=== PATIENT | female | born 1935 | race Caucasian/White ===

== ENCOUNTER 2021-10-27 12:13 | Inpatient (IN) ==
[2021-10-27] MEDS ORDERED: Naloxone 0.4 MG/ML INJ IVP PRN (17:24)
[2021-10-27] MEDS ORDERED: Ondansetron 4 MG/2 ML VIAL IVP PRN (17:24)
[2021-10-27] MEDS: 0.9 % Sodium Chloride 1,000 ML IVC SCH (17:43)
[2021-10-27] MEDS ORDERED: Melatonin 3 MG TABLET PO PRN (21:00)
[2021-10-27] MEDS: Metoprolol 100 MG TABLET PO SCH (21:31)
[2021-10-28] MEDS: 0.9 % Sodium Chloride 1,000 ML IVC SCH (01:23)
[2021-10-28 05:44] LABS: Basophils % 0.2 %; Eosinophils # 0.1 K/mcL (0.0-0.6); Hematocrit 35.6 % (35.3-44.9); Hemoglobin 11.6 g/dL (11.5-15.4); Immature Granulocytes % 0.5 % (0-4); Lymphocytes # 1.1 K/mcL (0.6-4.6); Lymphocytes % 12.5 %; Mean Corpuscular HGB Conc 32.6 g/dL (31.6-35.5); Mean Corpuscular Hemoglobin 31.8 pg (28.0-33.3); Mean Corpuscular Volume 97.5 fL (83.0-100.0); Mean Platelet Volume 9.5 fL (9.4-12.4); Monocytes # 0.7 K/mcL (0.0-1.3); Monocytes % 8.2 %; Neutrophils # 6.8 K/mcL (1.6-8.9); Platelet Count 223 K/mcL (140-400); Red Blood Count 3.65 M/mcL (3.82-4.97); Red Cell Distribution Width 13.1 % (11.5-14.5); Segmented Neutrophils % 77.6 %; White Blood Count 8.8 K/mcL (4.3-11.1)
[2021-10-28 05:48] LABS: INR 1.2; Prothrombin Time 13.2 Seconds (9.4-12.1)
[2021-10-28 06:54] LABS: Alanine Aminotransferase 69 Units/L (7-52); Albumin 3.2 g/dL (3.5-5.7); Albumin/Globulin Ratio 1.2 (1.1-2.2); Alkaline Phosphatase 700 Units/L (34-104); Aspartate Amino Transferase 113 Units/L (13-39); BUN/Creatinine Ratio 36 (6-26); Bilirubin,Direct 1.2 mg/dL (0.0-0.2); Bilirubin,Indirect 1.2 mg/dL (0.0-1.0); Bilirubin,Total 2.4 mg/dL (0.3-1.0); Blood Urea Nitrogen 14 mg/dL (8-23); Calcium 7.3 mg/dL (8.6-10.3); Carbon Dioxide 25 mEq/L (23-29); Chloride 104 mEq/L (98-107); Globulin 2.6 g/dL (2.4-3.5); Glucose 60 mg/dL (70-105); Osmolality,Calculated 282 (280-300); Potassium 3.5 mEq/L (3.5-5.1); Sodium 137 mEq/L (136-145); Total Protein 5.8 g/dL (6.4-8.9); eGFR For African Americans > 60 (> 60); eGFR For Non-African Americans > 60 (> 60)
[2021-10-28] MEDS ORDERED: Potassium Phosphate 44 MEQ in 0.9 % Sodium Chloride 250 ML IVPB ONE (07:42)
[2021-10-28] MEDS: Metoprolol 100 MG TABLET PO SCH ×2 (07:59→20:12)
[2021-10-28] MEDS: amLODIPine 5 MG TABLET PO SCH (08:32)
[2021-10-28] MEDS ORDERED: *HR* FentaNYL (PF) 100 MCG/2 ML VIAL ONE (09:07)
[2021-10-28] MEDS ORDERED: *HR* Propofol 200 MG/20 ML VIAL IVP ONE (09:07)
[2021-10-28] MEDS ORDERED: *HR* Rocuronium Bromide 50 MG/5 ML VIAL ONE (09:45)
[2021-10-28] MEDS ORDERED: Lidocaine -MPF 2% 5 ML VIAL ONE (09:45)
[2021-10-28] MEDS ORDERED: Indomethacin 50 MG SUPP.RECT RC ONE (10:21)
[2021-10-28] MEDS ORDERED: Ondansetron 4 MG/2 ML VIAL ONE (10:30)
[2021-10-28] MEDS ORDERED: Ringers Solution, Lactated 1,000 ML ONE (11:34)
[2021-10-28] MEDS: lisinopriL 20 MG TABLET PO SCH (15:54)
[2021-10-29 03:19] LABS: Hematocrit 34.4 % (35.3-44.9); Hemoglobin 11.4 g/dL (11.5-15.4); Mean Corpuscular HGB Conc 33.1 g/dL (31.6-35.5); Mean Corpuscular Hemoglobin 31.8 pg (28.0-33.3); Mean Corpuscular Volume 95.8 fL (83.0-100.0); Mean Platelet Volume 9.6 fL (9.4-12.4); Platelet Count 258 K/mcL (140-400); Red Blood Count 3.59 M/mcL (3.82-4.97); Red Cell Distribution Width 12.6 % (11.5-14.5)
[2021-10-29 03:37] LABS: Alanine Aminotransferase 61 Units/L (7-52); Albumin 3.2 g/dL (3.5-5.7); Albumin/Globulin Ratio 1.1 (1.1-2.2); Alkaline Phosphatase 652 Units/L (34-104); Aspartate Amino Transferase 94 Units/L (13-39); BUN/Creatinine Ratio 31 (6-26); Bilirubin,Direct 0.9 mg/dL (0.0-0.2); Bilirubin,Total 1.9 mg/dL (0.3-1.0); Blood Urea Nitrogen 11 mg/dL (8-23); Calcium 8.5 mg/dL (8.6-10.3); Carbon Dioxide 28 mEq/L (23-29); Chloride 102 mEq/L (98-107); Globulin 2.8 g/dL (2.4-3.5); Glucose 86 mg/dL (70-105); Osmolality,Calculated 281 (280-300); Phosphorous 2.7 mg/dL (2.7-4.5); Potassium 3.9 mEq/L (3.5-5.1); Sodium 136 mEq/L (136-145); eGFR For African Americans > 60 (> 60); eGFR For Non-African Americans > 60 (> 60)
[2021-10-29 07:46] VITALS: TEMP 97.5; O2SAT 93
[2021-10-29] MEDS: amLODIPine 5 MG TABLET PO SCH (08:02)
[2021-10-29] MEDS: Metoprolol 100 MG TABLET PO SCH (08:02)
[2021-10-29] MEDS: lisinopriL 20 MG TABLET PO SCH (08:02)
[2021-10-29 11:57] VITALS: BP 154/62; PULSE 60
== END 2021-10-29 12:20 | disposition home or self-care (01) | DRG 445 ==
LOC: 3ANU → SUATTDRO 17:24
PROVIDERS: ADMIT General Practice; ATTEND Internal Medicine